=== PATIENT | female | born 1955 | race Caucasian/White ===

== ENCOUNTER → 2016-09-30 | Outpatient (CLI) | payer OTHER ==
--- NOTE | 2016-09-30 12:20 | DX ---
Chest, Two Views October 29, 1920 hours History: Malignant melanoma, C 43.39. Comparison: August 2015 Findings: Cardiac silhouette is within normal range. No pneumonia, congestive heart failure, pleura l effusion, or pneumothorax. Possible right upper lobe 5 mm new pulmonary nodule versus parenchymal s carring or noncalcified granuloma. Impression: 1. Possible right upper lobe 5 mm pulmonary nodule. 2. Recommend noncontrast CT imaging for further evaluation. A Follow-Up Required test result notification was sent via the [facility] service, 12:18:25 PM, 7, [facility] Message ID [id number].
== END ==
LOC: FLAB 08:18
PROVIDERS: ATTEND Internal Medicine Hematology & Oncology
DX: J98.4 Other disorders of lung (principal); Z12.2 Encounter for screening for malignant neoplasm of respiratory organs; C43.39 Malignant melanoma of other parts of face

== ENCOUNTER → 2017-09-28 | Outpatient (CLI) | payer OTHER | LOC: FIMAGING 14:47 | PROVIDERS: ATTEND Family Medicine | DX: R92.8 Other abnormal and inconclusive findings on diagnostic imaging of breast (principal) ==

== ENCOUNTER → 2017-10-03 | Outpatient (CLI) | payer OTHER | LOC: FIMAGING 10:40 → EDSTATUS 10:41 | PROVIDERS: ATTEND Internal Medicine Hematology & Oncology | DX: Z13.83 Encounter for screening for respiratory disorder NEC (principal) ==

== ENCOUNTER → 2018-09-06 | Outpatient (CLI) | payer OTHER | LOC: FIMAGING 11:29 | PROVIDERS: ATTEND Family Medicine | DX: Z12.31 Encounter for screening mammogram for malignant neoplasm of breast (principal); Z85.3 Personal history of malignant neoplasm of breast ==